=== PATIENT | male | born 1965 | race Two or more races ===

== ENCOUNTER → 2017-04-13 | Day surgery (SDC) | payer OTHER ==
[~2017-04-13] MED LIST: IV RINGERS,LACTATED 1000ML 1,000 ML IV SCH; LIDOCAINE 1% PF 2 ML VIAL. ID PRN; LIDOCAINE 2% PF Vial for OR 5 ML VIAL. ONE; MIDAZOLAM HCL/PF 2 MG/2 ML VIAL. IV PRN; PROPOFOL 40 ML IV ONE; fentaNYL PF VIAL 100 MCG/2 ML VIAL IV PRN
[2017-04-13 11:19] VITALS: BP 122/79
--- NOTE | 2017-04-14 11:40 | PATHOLOGY ---
PATHOLOGY REPORT * * * * * * * * FINAL DIAGNOSIS: A. Small bowel biopsy: - No significant pathologic abnormalities. B. Gastric biopsy, antrum: - Reactive gastropathy with focal mild chronic inflammation and intestinal metaplasia. C. Esophageal biopsy, distal esophagus: - Segments of hyperplastic squamous esophageal mucosa with focal contiguous and separate segments of gastric mucosa showing focal active chronic inflammation and basilar squamous epithelial atypia. (JPM:lisa; 04/14/2017) COMMENT: Sections of the small bowel biopsy reveal segments of duodenal and small intestine mucosa. Where best oriented, the mucosal villi show no sprue-like changes or significant inflammatory changes. Sections of the gastric antral biopsy show congestion, foveolar hyperplasia, and focal mild chronic inflammation with a small focus of intestinal metaplasia. An immunoperoxidase stain for Helicobacter is obtained. No Helicobacter organisms are identified. The findings are consistent with a reactive gastropathy. Sections of the distal esophageal biopsy reveal segments of hyperplastic squamous esophageal mucosa with focally contiguous and separate segments of gastric mucosa showing focally active chronic inflammation. There is focal basilar squamous epithelial atypia. There is no evidence of Alcantar's change, dysplasia, or malignancy. Special stain performed: Immunoperoxidase stain for Helicobacter on B1. (JPM:lisa; 04/14/2017) REPORT ELECTRONICALLY SIGNED BY: Joe Pichardo M.D. DATE/TIME: 04/14/2017 11:39 * * * * * * * * GROSS PATHOLOGY: A. Received in formalin labeled "Mayi Forman, small bowel BX," are 3 segments of raymundo soft tissue measuring 0.9 x 0.3 x 0.4 cm in aggregate dimensions and ranging from 0.3 to 0.4 cm in maximum dimension. The specimen is submitted entirely in cassette A1. B. Received in formalin labeled "Mayi Forman, antrum, BX," are 2 segments of raymundo soft tissue measuring 0.9 x 0.4 x 0.4 cm in aggregate dimensions and ranging from 0.4 to 0.5 cm in maximum dimension. The specimen is submitted entirely in cassette B1. C. Received in formalin labeled "Mayi Forman, distal esophagus, BX," are 2 segments of raymundo soft tissue measuring 0.8 x 0.3 x 0.3 cm in aggregate dimensions and ranging from 0.4 to 0.5 cm in maximum dimension. The specimen is submitted entirely in cassette C1. (TSD; 04/13/2017) INITIAL CPT CODE(S): A; 09237 B; 48172, 40723 C; 56503 Professional services performed by [facility] at [address] [address] Technical services performed by [facility] at [address] [place] [address], [address] [address]. SPECIMEN(S) RECEIVED: A.Small bowel biopsy B.Antrum biospy C.Distal esophagus biopsy CLINICAL HISTORY: Bloating, early satiety, screening PATIENT: MAYI FORMAN /AGE: 801/23/1965 (Age: 52) PATIENT #: [id number] ALT CASE #: SPECIMEN COLLECTION DATE: 04/13/2017 SPECIMEN RECEIVED DATE: 04/13/2017 [facility] - [address] [place] [address] - PHONE: [phone] * * * END OF REPORT * * *
== END | disposition home or self-care (01) ==
LOC: ENDOS 09:19
PROVIDERS: ATTEND Internal Medicine Gastroenterology
DX: K64.0 First degree hemorrhoids (principal); K25.9 Gastric ulcer, unspecified as acute or chronic, without hemorrhage or perforation; K21.0 Gastro-esophageal reflux disease with esophagitis; Z83.3 Family history of diabetes mellitus; Z82.49 Family history of ischemic heart disease and other diseases of the circulatory system; Z72.89 Other problems related to lifestyle; Z87.891 Personal history of nicotine dependence
CPT/HCPCS: 43239; 45378; 88305; 88342; J2704; J2001